=== PATIENT | female | born 1945 | race Caucasian/White ===

== ENCOUNTER → 2017-02-08 | Outpatient (CLI) | payer OTHER, MEDICARE | LOC: FIMAGING 13:14 | PROVIDERS: ATTEND Internal Medicine | DX: Z12.31 Encounter for screening mammogram for malignant neoplasm of breast (principal) | CPT/HCPCS: G0202 ==

== ENCOUNTER → 2018-04-22 | Outpatient (CLI) | payer OTHER, MEDICARE | LOC: FIMAGING 14:42 | PROVIDERS: ATTEND Internal Medicine | DX: J98.09 Other diseases of bronchus, not elsewhere classified (principal); M41.85 Other forms of scoliosis, thoracolumbar region ==

== ENCOUNTER → 2018-04-27 | Outpatient (CLI) | payer OTHER, MEDICARE | LOC: FIMAGING 10:29 | PROVIDERS: ATTEND Internal Medicine | DX: R05 Cough (principal); J92.9 Pleural plaque without asbestos; R91.1 Solitary pulmonary nodule; E04.1 Nontoxic single thyroid nodule ==

== ENCOUNTER → 2018-05-01 | Outpatient (CLI) | payer OTHER, MEDICARE | LOC: FIMAGING 12:56 | PROVIDERS: ATTEND Internal Medicine | DX: E04.1 Nontoxic single thyroid nodule (principal) ==

== ENCOUNTER → 2018-05-06 | Outpatient (CLI) | payer OTHER, MEDICARE ==
[~2018-05-06] MED LIST: LIDOCAINE 1% 300 MG/30 ML SDV ONE
== END ==
LOC: FIMAGING 07:45
PROVIDERS: ATTEND Internal Medicine
PROC: 0G9K3ZX Drainage of Thyroid Gland, Percutaneous Approach, Diagnostic (ICD-10-PCS; principal; 2018-05-06)
DX: E04.1 Nontoxic single thyroid nodule (principal)

== ENCOUNTER → 2018-07-26 | Outpatient (CLI) | payer OTHER, MEDICARE | LOC: FIMAGING 15:19 | PROVIDERS: ATTEND Internal Medicine Pulmonary Disease | DX: R91.8 Other nonspecific abnormal finding of lung field (principal); J21.9 Acute bronchiolitis, unspecified; J45.909 Unspecified asthma, uncomplicated; J98.09 Other diseases of bronchus, not elsewhere classified; I25.10 Atherosclerotic heart disease of native coronary artery without angina pectoris ==